=== PATIENT | male | born 1985 | race African-American/Black ===

== ENCOUNTER 2016-12-21 03:28 | Emergency (ER) | payer OTHER ==
--- NOTE | 2016-12-21 03:49 | EDM.PDOC ---
ED HPI GENERAL MEDICAL PROBLEM - General Chief Complaint: ENT Problem Stated Complaint: COLD Time Seen by Provider: 12/21/16 03:46 - History of Present Illness INITIAL COMMENTS - FREE TEXT/NARRATIVE: HISTORY AND PHYSICAL: History of present illness: Patient is 31-year-old male presents with a concern of congestion sore throat green sinus drainage last several weeks she's had some low-grade tactile fevers he denies chest pain shortness breath nausea vomiting or other complaints he states he is in good health denies drug or alcohol abuse Review of systems: As per history of present illness and below otherwise all systems reviewed and negative. Past medical history: As per history of present illness and as reviewed below otherwise noncontributory. Surgical history: As per history of present illness and as reviewed below otherwise noncontributory. Social history: No reported history of drug or alcohol abuse. Family history: As per history of present illness and as reviewed below otherwise noncontributory. Physical exam: HEENT: Atraumatic, normocephalic, pupils reactive, negative for conjunctival pallor or scleral icterus, mucous membranes moist, throat injected, neck supple , nontender, trachea midline. Some frontal/maxillary sinus tenderness to percussion Lungs: Clear to auscultation, breath sounds equal bilaterally, chest nontender. Heart: S1S2, regular, negative for clicks, rubs, or JVD. Abdomen: Soft, nondistended, nontender. Negative for masses or hepatosplenomegaly. Negative for costovertebral tenderness. Pelvis: Stable nontender. Genitourinary: Deferred. Rectal: Deferred. Extremities: Atraumatic, negative for cords or calf pain. Neurovascular unremarkable. Neuro: Awake, alert, oriented. Cranial nerves II through XII unremarkable. Cerebellum unremarkable. Motor and sensory unremarkable throughout. Exam nonfocal. Diagnostics: None Therapeutics: None Impression: #1 sinusitis #2 pharyngitis Definitive disposition and diagnosis as appropriate pending reevaluation and review of above. throat Pain Score (Numeric/FACES): 4 - Related Data Allergies Allergy/AdvReac Type Severity Reaction Status Date / Time No Known Allergies Allergy Verified 12/21/16 03:36 Home Meds: Home Meds . [No Known Home Meds] 11/24/14 [History] Past Medical History Other Musculoskeletal History: Shrapnel removed from back, hx: many fractures, Tibia, Arm, Ankle, Left hand 3 fingers, Shattered Elbow, Dislocated thumb, Jaw dislocated Denies any orthopedic hardware, Some Low back pain Hematologic History: Reports: None Immunologic History: Reports: None - Past Surgical History GI Surgical History: Reports: Hernia Repair/Other Social & Family History - Family History Family Medical History: Noncontributory - Tobacco Use Smoking Status *Q: Never Smoker Second Hand Smoke Exposure: No - Recreational Drug Use Recreational Drug Use: No Drug Use in Last 12 Months: No ED ROS GENERAL - Review of Systems Review Of Systems: ROS reveals no pertinent complaints other than HPI. ED EXAM, GENERAL - Physical Exam Exam: See Below (See dictation) Course - Vital Signs Last Recorded V/S: Last Vital Signs Temp 36.5 C 12/21/16 03:28 Pulse 80 12/21/16 03:28 Resp 18 12/21/16 03:28 BP 109/76 12/21/16 03:28 Pulse Ox 97 12/21/16 03:28 Departure - Departure Time of Disposition: 03:48 Disposition: Home, Self-Care 01 Condition: Good Clinical Impression: Sinusitis, Pharyngitis - Discharge Information Referrals: PCP,None [Primary Care Provider] - Additional Instructions: The following information is given to patients seen in the emergency department who are being discharged to home. This information is to outline your options for follow-up care. We provide all patients seen in our emergency department with a follow-up referral. The need for follow-up, as well as the timing and circumstances, are variable depending upon the specifics of your emergency department visit. If you don't have a primary care physician on staff, we will provide you with a referral. We always advise you to contact your personal physician following an emergency department visit to inform them of the circumstance of the visit and for follow-up with them and/or the need for any referrals to a consulting specialist. The emergency department will also refer you to a specialist when appropriate. This referral assures that you have the opportunity for followup care with a specialist. All of these measure are taken in an effort to provide you with optimal care, which includes your followup. Under all circumstances we always encourage you to contact your private physician who remains a resource for coordinating your care. When calling for followup care, please make the office aware that this follow-up is from your recent emergency room visit. If for any reason you are refused follow-up, please contact the [facility] emergency department at and asked to speak to the emergency department charge nurse. [facility] [address] [place] [id number] Augmentin is prescribed Motrin/Tylenol as directed push fluids follow-up private medical doctor and/or clinic above return as needed as discussed
[2016-12-21 03:59] VITALS: BP 110/78
== END 2016-12-21 04:01 | disposition home or self-care (01) ==
LOC: MW.ED 03:28
DX: J32.9 Chronic sinusitis, unspecified (principal); J02.9 Acute pharyngitis, unspecified
CPT/HCPCS: 99282

== ENCOUNTER 2017-03-07 10:18 | Emergency (ER) | payer OTHER ==
[2017-03-07 10:44] VITALS: BP 121/67
--- NOTE | 2017-03-07 11:10 | EDM.PDOC ---
ED HPI GENERAL MEDICAL PROBLEM - General Chief Complaint: Respiratory Problem Stated Complaint: VOMITING/DIZZINESS Time Seen by Provider: 03/07/17 10:50 Source of Information: Reports: Patient History Limitations: Reports: No Limitations - History of Present Illness INITIAL COMMENTS - FREE TEXT/NARRATIVE: HISTORY AND PHYSICAL: History of present illness: [He should comes to the emergency room complaining of dark green nasal discharge and productive cough. 2 and a half weeks ago he was diagnosed with influenza type A. He feels that these symptoms have completely resolved. Sinus symptoms began over the past week, with today being his worst day. He's felt chilled at times and had a temperature of 99.6 at home today. Complains of pain and pressure in his face and under his eyes. He complains of a headache. Is tender behind his ears. Coughing up dark green sputum. Has had a couple episodes of vomiting today and is reporting decreased appetite. No change to bowel or bladder. Other family members are ill with similar symptoms. He's been taking DayQuil and and Flonase for his symptoms. These provided very little relief.] Review of systems: As per history of present illness and below otherwise all systems reviewed and negative. Past medical history: As per history of present illness and as reviewed below otherwise noncontributory. Surgical history: As per history of present illness and as reviewed below otherwise noncontributory. Social history: No reported history of drug or alcohol abuse. Family history: As per history of present illness and as reviewed below otherwise noncontributory. Physical exam: HEENT: Atraumatic, normocephalic. EYes are clear. Tender with palpation over frontal and maxillary sinus areas. TMs are pearly peres and without erythema or effusion. Oral mucous membranes are pink and moist with tonsillar swelling erythema or exudate. Neck is supple. No lymphadenopathy or tenderness is appreciated. Lungs: Clear to auscultation, breath sounds equal bilaterally. No wheezing crackles or rales. Heart: S1S2, regular rate and rhythm. Abdomen: Soft, nondistended, nontender. Pelvis: Stable nontender. Genitourinary: Deferred. Rectal: Deferred. Extremities: Atraumatic in appearance. Neurovascular unremarkable. Neuro: Awake, alert, oriented. Pleasant and conversational. Motor and sensory unremarkable throughout. Exam nonfocal. Impression: [acute sinusitis] Plan: [Start Amoxicillin 875 mg #20 sig one by mouth twice a day 0 refills, ondansetron ODT 4 mg #6 si by mouth every 8 hours as needed for nausea 0 refills. Push fluids, get plenty of rest. Establish care w/ a local PCP. Strict return precautions are reviewed w/ patient. He is in agreement. ] Definitive disposition and diagnosis as appropriate pending reevaluation and review of above. Generalized Pain Score (Numeric/FACES): 5 - Related Data Allergies Allergy/AdvReac Type Severity Reaction Status Date / Time No Known Allergies Allergy Verified 03/07/17 10:44 Home Meds: Home Meds . [No Known Home Meds] 11/24/14 [History] Past Medical History - Past Health History Medical/Surgical History: Denies Medical/Surgical History HEENT History: Reports: Impaired Vision Other HEENT History: wears glasses Other Musculoskeletal History: Shrapnel removed from back, hx: many fractures, Tibia, Arm, Ankle, Left hand 3 fingers, Shattered Elbow, Dislocated thumb, Jaw dislocated Denies any orthopedic hardware, Some Low back pain Hematologic History: Reports: None Immunologic History: Reports: None - Infectious Disease History Infectious Disease History: Reports: Chicken Pox - Past Surgical History Head Surgeries/Procedures: Reports: None HEENT Surgical History: Reports: Oral Surgery Other HEENT Surgeries/Procedures: Lasik GI Surgical History: Reports: Hernia Repair/Other Social & Family History - Family History Family Medical History: Noncontributory - Tobacco Use Smoking Status *Q: Never Smoker Second Hand Smoke Exposure: No - Caffeine Use Caffeine Use: Reports: Coffee - Recreational Drug Use Recreational Drug Use: No Drug Use in Last 12 Months: No ED ROS GENERAL - Review of Systems Review Of Systems: ROS reveals no pertinent complaints other than HPI. ED EXAM, GENERAL - Physical Exam Exam: See Below Course - Vital Signs Last Recorded V/S: Last Vital Signs Temp 97.6 F 03/07/17 10:41 Pulse 97 03/07/17 11:18 Resp 12 03/07/17 11:18 BP 121/67 03/07/17 11:18 Pulse Ox 95 03/07/17 11:18 Departure - Departure Time of Disposition: 11:10 Disposition: Home, Self-Care 01 Condition: Good Clinical Impression: Acute sinusitis - Discharge Information Instructions: Sinusitis, Adult, [id number] Referrals: PCP,None [Primary Care Provider] - Forms: ED Department Discharge Additional Instructions: The following information is given to patients seen in the emergency department who are being discharged to home. This information is to outline your options for follow-up care. We provide all patients seen in our emergency department with a follow-up referral. The need for follow-up, as well as the timing and circumstances, are variable depending upon the specifics of your emergency department visit. If you don't have a primary care physician on staff, we will provide you with a referral. We always advise you to contact your personal physician following an emergency department visit to inform them of the circumstance of the visit and for follow-up with them and/or the need for any referrals to a consulting specialist. The emergency department will also refer you to a specialist when appropriate. This referral assures that you have the opportunity for follow-up care with a specialist. All of these measure are taken in an effort to provide you with optimal care, which includes your follow-up. Under all circumstances we always encourage you to contact your private physician who remains a resource for coordinating your care. When calling for follow-up care, please make the office aware that this follow-up is from your recent emergency room visit. If for any reason you are refused follow-up, please contact the [facility] emergency department at and asked to speak to the emergency department charge nurse. [facility] Primary Care [address] [place] [id number] Follow-up and establish care with a local PCP in the next 1 week. Take antibiotics as prescribed. Push fluids, get plenty of rest. Return to ER as needed as discussed.
== END 2017-03-07 11:20 | disposition home or self-care (01) ==
LOC: MW.ED 10:18
DX: J01.90 Acute sinusitis, unspecified (principal)
CPT/HCPCS: 99282

== ENCOUNTER 2017-05-12 14:30 | Emergency (ER) | payer OTHER ==
--- NOTE | 2017-05-12 14:43 | EDM.PDOC ---
ED HPI GENERAL MEDICAL PROBLEM - General Chief Complaint: General Stated Complaint: COUGH,STUFFY Time Seen by Provider: 05/12/17 14:40 - History of Present Illness INITIAL COMMENTS - FREE TEXT/NARRATIVE: HISTORY AND PHYSICAL: History of present illness: Patient 31-year-old male presents with concern of sinus congestion and facial pain he's been struggling with this for approximately 2 weeks he denies fever chills nausea vomiting or other concern. He states he had similar episodes in the past with sinusitis Review of systems: As per history of present illness and below otherwise all systems reviewed and negative. Past medical history: As per history of present illness and as reviewed below otherwise noncontributory. Surgical history: As per history of present illness and as reviewed below otherwise noncontributory. Social history: No reported history of drug or alcohol abuse. Family history: As per history of present illness and as reviewed below otherwise noncontributory. Physical exam: HEENT: Atraumatic, normocephalic, pupils reactive, negative for conjunctival pallor or scleral icterus, mucous membranes moist, throat clear, neck supple, nontender, trachea midline. Tenderness over the frontal and maxillary sinuses to percussion Lungs: Clear to auscultation, breath sounds equal bilaterally, chest nontender. Heart: S1S2, regular, negative for clicks, rubs, or JVD. Abdomen: Soft, nondistended, nontender. Negative for masses or hepatosplenomegaly. Negative for costovertebral tenderness. Pelvis: Stable nontender. Genitourinary: Deferred. Rectal: Deferred. Extremities: Atraumatic, negative for cords or calf pain. Neurovascular unremarkable. Neuro: Awake, alert, oriented. Cranial nerves II through XII unremarkable. Cerebellum unremarkable. Motor and sensory unremarkable throughout. Exam nonfocal. Diagnostics: None Therapeutics: None Impression: #1 sinusitis Definitive disposition and diagnosis as appropriate pending reevaluation and review of above. jaw,ears, Pain Score (Numeric/FACES): 6 - Related Data Allergies Allergy/AdvReac Type Severity Reaction Status Date / Time No Known Allergies Allergy Verified 05/12/17 14:38 Home Meds: Home Meds . [No Known Home Meds] 11/24/14 [History] Past Medical History - Past Health History Medical/Surgical History: Denies Medical/Surgical History HEENT History: Reports: Impaired Vision Other HEENT History: wears glasses Other Musculoskeletal History: Shrapnel removed from back, hx: many fractures, Tibia, Arm, Ankle, Left hand 3 fingers, Shattered Elbow, Dislocated thumb, Jaw dislocated Denies any orthopedic hardware, Some Low back pain Hematologic History: Reports: None Immunologic History: Reports: None - Infectious Disease History Infectious Disease History: Reports: Chicken Pox - Past Surgical History Head Surgeries/Procedures: Reports: None HEENT Surgical History: Reports: Oral Surgery Other HEENT Surgeries/Procedures: Lasik GI Surgical History: Reports: Hernia Repair/Other Social & Family History - Family History Family Medical History: Noncontributory - Tobacco Use Smoking Status *Q: Never Smoker Second Hand Smoke Exposure: No - Caffeine Use Caffeine Use: Reports: Coffee - Recreational Drug Use Recreational Drug Use: No Drug Use in Last 12 Months: No ED ROS GENERAL - Review of Systems Review Of Systems: ROS reveals no pertinent complaints other than HPI. ED EXAM, GENERAL - Physical Exam Exam: See Below (See dictation) Course - Vital Signs Last Recorded V/S: Last Vital Signs Temp 36.4 C 05/12/17 14:36 Pulse 81 05/12/17 14:36 Resp 18 05/12/17 14:36 BP 127/86 05/12/17 14:36 Pulse Ox 94 L 05/12/17 14:36 Departure - Departure Time of Disposition: 14:42 Disposition: Home, Self-Care 01 Condition: Good Clinical Impression: Sinusitis - Discharge Information Referrals: PCP,None [Primary Care Provider] -
[2017-05-12 14:45] VITALS: BP 127/86
== END 2017-05-12 14:50 | disposition home or self-care (01) ==
LOC: MW.ED 14:30
DX: J32.9 Chronic sinusitis, unspecified (principal)
CPT/HCPCS: 99282

== ENCOUNTER 2017-08-19 02:42 | Emergency (ER) | payer OTHER ==
[2017-08-19 02:55] VITALS: BP 127/69
[2017-08-19] MEDS ORDERED: Ketorolac 60 MG/2 ML SDV IM ONE (03:33)
--- NOTE | 2017-08-19 03:35 | EDM.PDOC ---
ED HPI GENERAL MEDICAL PROBLEM - General Chief Complaint: Back Pain or Injury Stated Complaint: LOWER BACK PAIN Time Seen by Provider: 08/19/17 03:19 - History of Present Illness INITIAL COMMENTS - FREE TEXT/NARRATIVE: HISTORY AND PHYSICAL: History of present illness: The patient is a healthy 31-year-old male who presents with at least a 4-5 day history of lower back pain which is bilateral. He has not had any trauma to his back and the pain does not radiate to his butt or his legs and he has no bowel or bladder disturbances. The patient denies any fevers or chills and has no discrete flank pain urinary complaints or abdominal pain. He says he is just not had an appetite and he has felt hot and cold. Patient has not taken any over -the-counter meds for this pain. He says it started gradually and has been getting progressively worse and he does a lot of activity physically at work. He has no weakness in lower extremities and no neurosensory changes. Patient states that when he position changes it is more uncomfortable. Review of systems: As per history of present illness and below otherwise all systems reviewed and negative. Past medical history: As per history of present illness and as reviewed below otherwise noncontributory. Surgical history: As per history of present illness and as reviewed below otherwise noncontributory. Social history: No reported history of drug or alcohol abuse. Family history: As per history of present illness and as reviewed below otherwise noncontributory. Physical exam: General: Well-developed well-nourished man who is nontoxic and vital signs are noted by me. Patient ambulated into the ED without assistance HEENT: Atraumatic, normocephalic, pupils reactive, negative for conjunctival pallor or scleral icterus, mucous membranes moist, throat clear, neck supple, nontender, trachea midline. Lungs: Clear to auscultation, breath sounds equal bilaterally, chest nontender. Heart: S1S2, regular in rhythm no overt murmurs Abdomen: Soft, nondistended, nontender. NABS Negative for costovertebral tenderness. Pelvis: Deferred Genitourinary: Deferred. Rectal: Deferred. Extremities: Atraumatic, negative for cords or calf pain. Neurovascular unremarkable. Neuro: Awake, alert, oriented. Cranial nerves II through XII unremarkable. Cerebellum unremarkable. Motor and sensory unremarkable throughout. Exam nonfocal. Back: There are no midline step-offs tenderness defects of the thoracic or lumbar spine no CVA tenderness or posterior rib tenderness and no pelvis tenderness. There is no tenderness with palpation of the buttocks bilaterally. Diagnostics: Lumbar spine x-rays UA Therapeutics: Toradol Patient drove himself Impression: Lumbar back pain/musculoskeletal pain Definitive disposition and diagnosis as appropriate pending reevaluation and review of above. Lower Back Pain Score (Numeric/FACES): 6 - Related Data Allergies Allergy/AdvReac Type Severity Reaction Status Date / Time No Known Allergies Allergy Verified 08/19/17 02:55 Home Meds: Home Meds . [No Known Home Meds] 11/24/14 [History] Past Medical History - Past Health History Medical/Surgical History: Denies Medical/Surgical History HEENT History: Reports: Impaired Vision Other HEENT History: wears glasses Other Musculoskeletal History: Shrapnel removed from back, hx: many fractures, Tibia, Arm, Ankle, Left hand 3 fingers, Shattered Elbow, Dislocated thumb, Jaw dislocated Denies any orthopedic hardware, Some Low back pain Hematologic History: Reports: None Immunologic History: Reports: None - Infectious Disease History Infectious Disease History: Reports: Chicken Pox - Past Surgical History Head Surgeries/Procedures: Reports: None HEENT Surgical History: Reports: Oral Surgery Other HEENT Surgeries/Procedures: Lasik GI Surgical History: Reports: Hernia Repair/Other Social & Family History - Family History Family Medical History: Noncontributory - Tobacco Use Smoking Status *Q: Never Smoker Second Hand Smoke Exposure: No - Caffeine Use Caffeine Use: Reports: None - Recreational Drug Use Recreational Drug Use: No ED ROS GENERAL - Review of Systems Review Of Systems: ROS reveals no pertinent complaints other than HPI. ED EXAM, GENERAL - Physical Exam Exam: See Below (see dictation) Course - Vital Signs Last Recorded V/S: Last Vital Signs Temp 36.2 C 08/19/17 02:52 Pulse 75 08/19/17 02:52 Resp 20 08/19/17 02:52 BP 127/69 08/19/17 02:52 Pulse Ox 98 08/19/17 02:52 - Orders/Labs/Meds Orders: Active Orders 24 hr Category Date Time Status Lumbar Spine 2 or 3V [CR] Stat Exams 08/19/17 03:33 Taken UA W/MICROSCOPIC [URIN] Stat Lab 08/19/17 03:40 Ordered Labs: Laboratory Tests 08/19/17 Range/Units 03:40 Urine Color YELLOW Urine Appearance CLEAR Urine pH 6.0 (5.0-8.0) Ur Specific [place] 1.025 (1.001-1.035) Urine Protein NEGATIVE (NEGATIVE) mg/dL Urine Glucose (UA) NEGATIVE (NEGATIVE) mg/dL Urine Ketones NEGATIVE (NEGATIVE) mg/dL Urine Occult Blood NEGATIVE (NEGATIVE) Urine Nitrite NEGATIVE (NEGATIVE) Urine Bilirubin NEGATIVE (NEGATIVE) Urine Urobilinogen 0.2 (<2.0) EU/dL Ur Leukocyte Esterase NEGATIVE (NEGATIVE) Urine RBC 0-2 (0-2/HPF) Urine WBC 0-2 (0-5/HPF) Ur Epithelial Cells RARE (NONE-FEW) Urine Bacteria FEW (NEGATIVE) Meds: Medications Discontinued Medications Generic Name Dose Route Start Last Admin Trade Name Freq PRN Reason Stop Dose Admin Ketorolac Tromethamine 60 mg 08/19/17 03:33 08/19/17 03:51 Toradol IM 08/19/17 03:34 60 mg ONETIME ONE Administration Departure - Departure Time of Disposition: 04:24 Disposition: Home, Self-Care 01 Condition: Good Clinical Impression: Lumbar back pain - Discharge Information Referrals: PCP,None [Primary Care Provider] - Forms: ED Department Discharge Additional Instructions: The following information is given to patients seen in the emergency department who are being discharged to home. This information is to outline your options for follow-up care. We provide all patients seen in our emergency department with a follow-up referral. The need for follow-up, as well as the timing and circumstances, are variable depending upon the specifics of your emergency department visit. If you don't have a primary care physician on staff, we will provide you with a referral. We always advise you to contact your personal physician following an emergency department visit to inform them of the circumstance of the visit and for follow-up with them and/or the need for any referrals to a consulting specialist. The emergency department will also refer you to a specialist when appropriate. This referral assures that you have the opportunity for followup care with a specialist. All of these measure are taken in an effort to provide you with optimal care, which includes your followup. Under all circumstances we always encourage you to contact your private physician who remains a resource for coordinating your care. When calling for followup care, please make the office aware that this follow-up is from your recent emergency room visit. If for any reason you are refused follow-up, please contact the [facility] emergency department at and ask to speak to the emergency department charge nurse. [facility] Primary care- Internal Medicine and Family [address] [id number] Please use ice after all activities and work and then switch to heat as we discussed. Try to do stretching exercises to open up the back area do all movements and position changes slowly. Use prescriptions as directed, diclofenac and Norflex. Diclofenac as an anti-inflammatory see you do not need to add Motrin or ibuprofen. Take the Norflex only when you're at home as it is a muscle relaxer and you should not be at work or driving a car while taking this. Please call and schedule a follow-up appointment in our clinic as you may need further care and evaluation and/or imaging. Return to ER as needed and as discussed - My Orders Last 24 Hours: My Active Orders 08/19/17 03:33 Lumbar Spine 2 or 3V [CR] Stat 08/19/17 03:40 UA W/MICROSCOPIC [URIN] Stat - Assessment/Plan Last 24 Hours: My Active Orders 08/19/17 03:33 Lumbar Spine 2 or 3V [CR] Stat 08/19/17 03:40 UA W/MICROSCOPIC [URIN] Stat
--- NOTE | 2017-08-19 17:33 | CR ---
EXAM DATE: 08/19/17 PATIENT'S AGE: 31 Patient: ОЛЕГ LA Facility: [place], [place] Site . Site : 1985 Study: XRay Spine Lumbar [id number]/25/2018 4:14:21 AM Ordering Physician: Lopez Pierre Final Report: INDICATION: Low back pain TECHNIQUE: Lumbar spine radiograph 3 views COMPARISON: 07/15/14 FINDINGS: Bones: No acute fractures or aggressive bone lesions are identified. Alignment is normal. Discs: The disc spaces are unremarkable in appearance. The facet joints are unremarkable. Soft tissues: Unremarkable. No radiopaque foreign bodies are seen. IMPRESSION: 1. No acute osseous injuries or abnormalities are noted. Dictated by: Luis Felipe Pack MD @ 08/19/2017 04:15:25 (Electronic Signature) Report Signed by Proxy. [facility]
== END 2017-08-19 04:45 | disposition home or self-care (01) ==
LOC: MW.ED 02:42
DX: M54.5 Low back pain (principal)
CPT/HCPCS: 72100; 81001; 96372; 99284; J1885

== ENCOUNTER 2018-09-03 15:45 | Emergency (ER) | payer SELFPAY ==
--- NOTE | 2018-09-03 15:53 | EDM.PDOC ---
ED HPI GENERAL MEDICAL PROBLEM - General Chief Complaint: ENT Problem Stated Complaint: FACE AND RIGHT SIDE EAR PAIN Time Seen by Provider: 09/03/18 15:48 Source of Information: Reports: Patient History Limitations: Reports: No Limitations - History of Present Illness INITIAL COMMENTS - FREE TEXT/NARRATIVE: History of present illness: []Patient had a recent cold and for about the last 3 days he's been feeling facial pain and pressure all over but worse on his right side. Patient has no change in vision, fevers, chills, diarrhea, or vomiting. Review of systems: As per history of present illness and below otherwise all systems reviewed and negative. Past medical history: As per history of present illness and as reviewed below otherwise noncontributory. Surgical history: As per history of present illness and as reviewed below otherwise noncontributory. Social history: No reported history of drug or alcohol abuse. Family history: As per history of present illness and as reviewed below otherwise noncontributory. Physical exam: General: Well developed, well nourished in NAD HEENT: Atraumatic, normocephalic, pupils reactive, negative for conjunctival pallor or scleral icterus, mucous membranes moist, throat clear, neck supple, nontender, trachea midline. maxillary Sinuses tender to palpation, TMs clear Lungs: Clear to auscultation, breath sounds equal bilaterally, chest nontender. Heart: S1S2, regular, negative for clicks, rubs, or JVD. Abdomen: NABS, Soft, nondistended, nontender. Negative for masses or hepatosplenomegaly. Negative for costovertebral tenderness. Pelvis: Stable nontender. Genitourinary: Deferred. Rectal: Deferred. Extremities: Atraumatic, negative for cords or calf pain. Neurovascular unremarkable. Neuro: Awake, alert, oriented. Cranial nerves II through XII unremarkable. Cerebellum unremarkable. Motor and sensory unremarkable throughout. Exam nonfocal. Skin:warm and dry Diagnostics: None Therapeutics: None ED Course: Stable Impression: Acute sinusitis Prescriptions: Zithromax Plan: Take meds as directed, follow up with your primary care physician, return to ER if symptoms worsen or change. Definitive disposition and diagnosis as appropriate pending reevaluation and review of above. Face/Facial Pain Score (Numeric/FACES): 7 - Related Data Allergies Allergy/AdvReac Type Severity Reaction Status Date / Time No Known Allergies Allergy Verified 09/03/18 15:52 Home Meds: Home Meds Azithromycin [Zithromax] 250 mg PO DAILY #6 tab 09/03/18 [Rx] Past Medical History - Past Health History Medical/Surgical History: Denies Medical/Surgical History HEENT History: Reports: Impaired Vision Other HEENT History: wears glasses Respiratory History: Reports: Bronchitis, Recurrent Musculoskeletal History: Reports: Fracture Other Musculoskeletal History: Shrapnel removed from back, hx: many fractures, Tibia, Arm, Ankle, Left hand 3 fingers, Shattered Elbow, Dislocated thumb, Jaw dislocated Denies any orthopedic hardware, Some Low back pain Hematologic History: Reports: None Immunologic History: Reports: None - Infectious Disease History Infectious Disease History: Reports: None - Past Surgical History Head Surgeries/Procedures: Reports: None HEENT Surgical History: Reports: Oral Surgery Other HEENT Surgeries/Procedures: Lasik GI Surgical History: Reports: Hernia Repair/Other Social & Family History - Family History Family Medical History: Noncontributory - Caffeine Use Caffeine Use: Reports: None ED ROS ENT - Review of Systems Review Of Systems: See Below ED EXAM, ENT - Physical Exam Exam: See Below Course - Vital Signs Last Recorded V/S: Last Vital Signs Temp 96.3 F 09/03/18 15:53 Pulse 96 09/03/18 15:53 Resp 16 09/03/18 15:53 BP 119/72 09/03/18 15:53 Pulse Ox 94 L 09/03/18 15:53 Departure - Departure Time of Disposition: 16:04 Disposition: Home, Self-Care 01 Condition: Good Clinical Impression: Acute sinusitis Qualifiers: Sinusitis location: maxillary Recurrence: not specified as recurrent Qualified Code(s): J01.00 - Acute maxillary sinusitis, unspecified - Discharge Information *PRESCRIPTION DRUG MONITORING PROGRAM REVIEWED*: No *COPY OF PRESCRIPTION DRUG MONITORING REPORT IN PATIENT ALIA: No Prescriptions: Azithromycin [Zithromax] 250 mg PO DAILY #6 tab Forms: ED Department Discharge Additional Instructions: The following information is given to patients seen in the emergency department who are being discharged to home. This information is to outline your options for follow-up care. We provide all patients seen in our emergency department with a follow-up referral. The need for follow-up, as well as the timing and circumstances, are variable depending upon the specifics of your emergency department visit. If you don't have a primary care physician on staff, we will provide you with a referral. We always advise you to contact your personal physician following an emergency department visit to inform them of the circumstance of the visit and for follow-up with them and/or the need for any referrals to a consulting specialist. The emergency department will also refer you to a specialist when appropriate. This referral assures that you have the opportunity for follow-up care with a specialist. All of these measure are taken in an effort to provide you with optimal care, which includes your follow-up. Under all circumstances we always encourage you to contact your private physician who remains a resource for coordinating your care. When calling for follow-up care, please make the office aware that this follow-up is from your recent emergency room visit. If for any reason you are refused follow-up, please contact the [facility] at and asked to speak to the emergency department charge nurse. [facility] [address] [place] [id number]
[2018-09-03 15:56] VITALS: BP 119/72
== END 2018-09-03 16:17 | disposition home or self-care (01) ==
LOC: MW.ED 15:45
DX: J01.00 Acute maxillary sinusitis, unspecified (principal)
CPT/HCPCS: 99282